=== PATIENT | female | born 2000 | race African-American/Black ===

== ENCOUNTER 2020-09-22 03:50 | Inpatient (IN) ==
[2020-09-22] MEDS ORDERED: ONDANSETRON 4 MG/2 ML VIAL IV PRN (03:59)
[2020-09-22] MEDS ORDERED: LACTATED RINGERS 1,000 ML IV SCH (05:00)
[2020-09-22 05:10] LABS: Basophils # 0.1 10*3/uL (0.0-0.2); Basophils % 0.4 % (0.0-0.8); Eosinophils # 0.1 10*3/uL (0.0-0.87); Eosinophils % 0.6 % (0.00-10.9); Hematocrit 28.8 VOL% (35.7-47.0); Hemoglobin 9.2 GM/DL (12.0-16.0); Immature Granulocytes % 0.8 %; Lymphocytes # 2.3 10*3/uL (1.4-4.0); Lymphocytes % 17.5 % (21.3-54.2); Mean Corpuscular HGB Conc 31.9 GM/DL (32-36); Mean Corpuscular Volume 79.1 FL (87-102); Mean Platelet Volume 11.2 FL (9.6-12.0); Monocytes % 9.3 % (1.7-12.7); NRBC # 0.02 10*3/uL; Neutrophils % 71.4 % (38.7-73.9); Platelet Count 366 T/CUMM (130-400); Red Blood Count 3.64 MC/CUMM (3.8-5.5); Red Cell Distribution Width 15.7 % (9.3-17.3)
[2020-09-22 05:21] LABS: Bacteria,Urine Occasional /HPF (Few); Bilirubin,Urine Negative (Negative); Blood, Urine Negative (Negative); Glucose,Urine (UA) Negative (Negative); Hyaline Casts,Urine 1 /LPF (0-3); Ketones,Urine Negative (Negative); Nitrite,Urine Negative (Negative); Protein,Urine Negative; RBC,Urine 1 /HPF (0-4); Squamous Epithelial Cell,Urine Occasional /HPF (0-10); Urine Appearance CLEAR (Clear); Urine Color Straw (Yellow); Urine Specific Gravity 1.004 (1.001-1.035); Urine Urobilinogen < 2.0 EU/DL (0.2-1.0); WBC,Urine 2 /HPF (0-6)
[2020-09-22 05:31] LABS: Albumin 2.6 G/DL (3.4-5.0); Bilirubin,Total 0.4 MG/DL (0.2-1.0); Calcium 8.7 MG/DL (8.5-10.1); Osmolality,Calculated 273.5 MOS/KG (273-304); Total Protein 7.2 G/DL (6.4-8.3)
[2020-09-22] MEDS ORDERED: OXYTOCIN/LR 20 UNIT/1,000 ML BAG IV SCH (06:00)
[2020-09-22] MEDS ORDERED: diphenhydrAMINE 50 MG/1 ML VIAL IV PRN ×2 (08:52)
[2020-09-22] MEDS ORDERED: FAMOTIDINE 20 MG/2 ML VIAL IV ONE (08:52)
[2020-09-22] MEDS ORDERED: ePHEDrine 50 MG/ML VIAL IV PRN (08:52)
[2020-09-22] MEDS ORDERED: CITRIC ACID/SODIUM CITRATE 30 ML UDCUP PO ONE (08:52)
[2020-09-22] MEDS ORDERED: LACTATED RINGERS 1,000 ML IV ONE (08:52)
[2020-09-22] MEDS ORDERED: NALOXONE 0.4 MG/ML VIAL IV PRN (08:52)
[2020-09-22] MEDS ORDERED: fentaNYL 2 MCG/ROPIV 0.2% EPID 100 ML EPIDURAL SCH (09:00)
[2020-09-22 12:31] LABS: Bilirubin,Urine Negative (Negative); Blood, Urine Negative (Negative); Glucose,Urine (UA) Negative (Negative); Ketones,Urine 5 mg/dL (Negative); Nitrite,Urine Negative (Negative); Protein,Urine Negative; Squamous Epithelial Cell,Urine Occasional /HPF (0-10); Urine Appearance CLEAR (Clear); Urine Color Straw (Yellow); Urine Specific Gravity 1.005 (1.001-1.035); Urine Urobilinogen < 2.0 EU/DL (0.2-1.0)
[2020-09-22] MEDS ORDERED: TRANEXAMIC ACID 1,000 MG/10 ML VIAL ONE (12:45)
[2020-09-22] MEDS ORDERED: miSOPROStoL 200 MCG TABLET ONE (12:45)
[2020-09-22] MEDS ORDERED: METHYLERGONOVINE 0.2 MG/1 ML AMP ONE (12:46)
[2020-09-22] MEDS ORDERED: SODIUM CHLORIDE 0.9% 0 ML IV ONE (12:46)
[2020-09-22] MEDS ORDERED: CARBOPROST TROMETHAMINE 250 MCG/ML AMP IM ONE (12:46)
[2020-09-22] MEDS ORDERED: LIDOCAINE 1% 50 ML VIAL ONE (14:54)
[2020-09-22 15:01] LABS: Cord Venous Blood HCO3 20.1 MMOL/L; Cord Venous Blood PO2 20.4
[2020-09-22] MEDS ORDERED: RHO(D) IMMUNE GLOBULIN 300 MCG SYRINGE IM ONE (18:05)
[2020-09-22] MEDS ORDERED: BENZOCAINE 20%/MENTHOL 0.5% SPRAY 56 GM CAN TOP PRN (18:05)
[2020-09-22] MEDS ORDERED: oxyCODONE/ACETAMINOPHEN 5-325 MG TABLET PO PRN ×2 (18:05)
[2020-09-22] MEDS ORDERED: IBUPROFEN 800 MG TABLET PO PRN (18:05)
[2020-09-22] MEDS ORDERED: WITCH HAZEL PADS 100/JAR TOP PRN (18:05)
[2020-09-22] MEDS ORDERED: BISACODYL 10 MG SUPP RECTAL PRN (18:05)
[2020-09-22] MEDS ORDERED: OXYTOCIN/LR 20 UNIT/1,000 ML BAG IV ONE ×2 (18:05→18:09)
[2020-09-22] MEDS ORDERED: DIPH/TET/ACEL PERT BOOSTER VACCINE 0.5 ML VIAL IM ONE (18:05)
[2020-09-22] MEDS ORDERED: LANOLIN 50% CREAM 0.3 OZ TUBE TOP PRN (18:05)
[2020-09-22] MEDS ORDERED: ACETAMINOPHEN 325 MG TABLET PO PRN (18:05)
[2020-09-22] MEDS ORDERED: MEASLES/MUMPS/RUBELLA VACCINE 0.5 ML VIAL SUBCUT ONE (18:05)
[2020-09-22] MEDS ORDERED: HYDROCORTISONE 2.5% RECTAL CREAM 30 GM TUBE TOP PRN (18:05)
[2020-09-22] MEDS ORDERED: oxyCODONE/ACETAMINOPHEN 5-325 MG TABLET ONE (18:13)
[2020-09-22] MEDS: DOCUSATE SODIUM 100 MG CAPSULE PO SCH (21:34)
[2020-09-23 04:27] LABS: Basophils # 0.1 10*3/uL (0.0-0.2); Basophils % 0.3 % (0.0-0.8); Eosinophils # 0.1 10*3/uL (0.0-0.87); Eosinophils % 0.3 % (0.00-10.9); Hematocrit 24.7 VOL% (35.7-47.0); Hemoglobin 7.9 GM/DL (12.0-16.0); Immature Granulocytes % 0.8 %; Immature Granulocytes Absolute 0.14 #; Lymphocytes # 2.1 10*3/uL (1.4-4.0); Lymphocytes % 11.7 % (21.3-54.2); Mean Corpuscular Volume 78.7 FL (87-102); Mean Platelet Volume 10.4 FL (9.6-12.0); Monocytes % 9.9 % (1.7-12.7); Platelet Count 258 T/CUMM (130-400); Red Blood Count 3.14 MC/CUMM (3.8-5.5); Red Cell Distribution Width 15.4 % (9.3-17.3); White Blood Count 18.1 T/CUMM (4-12)
[2020-09-23] MEDS: DOCUSATE SODIUM 100 MG CAPSULE PO SCH ×2 (08:29→21:12)
[2020-09-23] MEDS ORDERED: FERROUS SULFATE 325 MG TABLET PO SCH (09:00)
[2020-09-23] MEDS ORDERED: SODIUM CHLORIDE 0.9% 1,000 ML IV PRN (09:39)
[2020-09-23 21:00] LABS: Hematocrit 29.3 VOL% (35.7-47.0); Hemoglobin 9.7 GM/DL (12.0-16.0)
[2020-09-23] MEDS: FERROUS SULFATE 325 MG TABLET PO SCH (21:12)
[2020-09-24 07:15] VITALS: BP 127/84
[2020-09-24] MEDS: FERROUS SULFATE 325 MG TABLET PO SCH (10:16)
[2020-09-24] MEDS: DOCUSATE SODIUM 100 MG CAPSULE PO SCH (10:16)
== END 2020-09-24 12:08 | disposition home or self-care (01) | DRG 560 ==
LOC: N.LDOUT 03:50 → N.LD 03:53 → N.OB 17:20
PROVIDERS: ADMIT Obstetrics & Gynecology; ATTEND Obstetrics & Gynecology

== ENCOUNTER 2022-07-27 13:57 | Inpatient (IN) ==
[2022-07-27] MEDS: LACTATED RINGERS 1,000 ML IV SCH ×2 (14:27→17:26)
[2022-07-27] MEDS ORDERED: OXYTOCIN/LR 20 UNIT/1,000 ML BAG IV ONE ×3 (14:35→21:38)
[2022-07-27] MEDS ORDERED: ONDANSETRON 4 MG/2 ML VIAL IV PRN (14:35)
[2022-07-27] MEDS ORDERED: CARBOPROST TROMETHAMINE 250 MCG/ML AMP IM PRN (14:35)
[2022-07-27] MEDS ORDERED: miSOPROStoL 200 MCG TABLET RECTAL PRN (14:35)
[2022-07-27] MEDS ORDERED: TRANEXAMIC ACID 1,000 MG in SODIUM CHLORIDE 0.9% 100 ML IV PRN (14:35)
[2022-07-27] MEDS ORDERED: METHYLERGONOVINE 0.2 MG/1 ML AMP IM PRN (14:35)
[2022-07-27] MEDS ORDERED: CITRIC ACID/SODIUM CITRATE 30 ML UDCUP PO ONE (14:41)
[2022-07-27] MEDS ORDERED: ePHEDrine 50 MG/ML VIAL IV PRN (14:41)
[2022-07-27] MEDS ORDERED: NALOXONE 0.4 MG/ML VIAL IV PRN (14:41)
[2022-07-27] MEDS ORDERED: FAMOTIDINE 20 MG/2 ML VIAL IV ONE (14:41)
[2022-07-27 14:55] LABS: Basophils % 0.3 % (0.0-0.8); Eosinophils % 0.3 % (0.00-10.9); Hematocrit 31.3 VOL% (35.7-47.0); Hemoglobin 9.8 GM/DL (12.0-16.0); Immature Granulocytes % 0.7 %; Immature Granulocytes Absolute 0.07 #; Lymphocytes # 1.8 10*3/uL (1.4-4.0); Lymphocytes % 18.5 % (21.3-54.2); Mean Corpuscular HGB Conc 31.3 GM/DL (32-36); Mean Platelet Volume 11.4 FL (9.6-12.0); Monocytes # 0.7 10*3/uL (0.11-0.8); Monocytes % 6.6 % (1.7-12.7); Neutrophils % 73.6 % (38.7-73.9); Platelet Count 334 T/CUMM (130-400); Red Blood Count 3.96 MC/CUMM (3.8-5.5); Red Cell Distribution Width 15.4 % (9.3-17.3); White Blood Count 9.8 T/CUMM (4-12)
[2022-07-27] MEDS ORDERED: fentaNYL 2 MCG/ROPIV 0.2% EPID 100 ML EPIDURAL SCH (15:00)
[2022-07-27] MEDS ORDERED: OXYTOCIN/LR 20 UNIT/1,000 ML BAG IV SCH (15:00)
[2022-07-27] MEDS ORDERED: AMPICILLIN INJ 2,000 MG in SODIUM CHLORIDE 0.9% 100 ML IV ONE (15:15)
[2022-07-27] MEDS ORDERED: CLINDAMYCIN INJ 900 MG/50 ML PREMIX IV SCH (15:30)
[2022-07-27 16:31] LABS: Glucose,Urine (UA) Negative (Negative); Nitrite,Urine Negative (Negative); Protein,Urine Negative (Negative); Urine Appearance Clear (Clear); Urine Color Yellow (Yellow); Urine Specific Gravity 1.015 (1.001-1.035)
[2022-07-27 16:32] LABS: Bilirubin,Urine Negative (Negative); Blood, Urine Negative (Negative); Ketones,Urine 15 mg/dL (Negative)
[2022-07-27 16:33] LABS: Mucus,Urine Occasional /LPF (Occasional); RBC,Urine 1 /HPF (0-4); Squamous Epithelial Cell,Urine Occasional /HPF (0-10)
[2022-07-27] MEDS ORDERED: SODIUM CHLORIDE 0.9% 0 ML IV ONE (17:28)
[2022-07-27 17:52] LABS: Cord Arterial Blood HCO3 21.1 MMOL/L
[2022-07-27 17:55] LABS: Cord Venous Blood HCO3 23.1 MMOL/L; Cord Venous Blood PCO2 37.8 MMHG; Cord Venous Blood PO2 28.9
[2022-07-27] MEDS ORDERED: AMPICILLIN INJ 1,000 MG in SODIUM CHLORIDE 0.9% 100 ML IV SCH (20:00)
[2022-07-27] MEDS ORDERED: oxyCODONE/ACETAMINOPHEN 5-325 MG TABLET PO PRN (21:38)
[2022-07-27] MEDS ORDERED: BENZOCAINE 20%/MENTHOL 0.5% SPRAY 56 GM CAN TOP PRN (21:38)
[2022-07-27] MEDS ORDERED: ACETAMINOPHEN 325 MG TABLET PO PRN (21:38)
[2022-07-27] MEDS ORDERED: HYDROCORTISONE 2.5% RECTAL CREAM 30 GM TUBE TOP PRN (21:38)
[2022-07-27] MEDS ORDERED: LANOLIN 50% CREAM 0.3 OZ TUBE TOP PRN (21:38)
[2022-07-27] MEDS ORDERED: WITCH HAZEL PADS 100/JAR TOP PRN (21:38)
[2022-07-27] MEDS ORDERED: BISACODYL 10 MG SUPP RECTAL PRN (21:38)
[2022-07-27] MEDS ORDERED: DIPH/TET/ACEL PERT BOOSTER VACCINE 0.5 ML VIAL IM ONE (22:00)
[2022-07-27] MEDS ORDERED: RHO(D) IMMUNE GLOBULIN 300 MCG SYRINGE IM ONE (22:00)
[2022-07-27] MEDS ORDERED: MEASLES/MUMPS/RUBELLA VACCINE 0.5 ML VIAL SUBCUT ONE (22:00)
[2022-07-28] MEDS: oxyCODONE/ACETAMINOPHEN 5-325 MG TABLET PO PRN ×2 (02:29→12:33)
[2022-07-28] MEDS: IBUPROFEN 800 MG TABLET PO PRN ×3 (02:30→20:19)
[2022-07-28 05:28] LABS: Basophils # 0.1 10*3/uL (0.0-0.2); Basophils % 0.4 % (0.0-0.8); Eosinophils # 0.1 10*3/uL (0.0-0.87); Eosinophils % 0.4 % (0.00-10.9); Hematocrit 32.9 VOL% (35.7-47.0); Hemoglobin 10.1 GM/DL (12.0-16.0); Immature Granulocytes % 0.6 %; Immature Granulocytes Absolute 0.09 #; Lymphocytes # 2.4 10*3/uL (1.4-4.0); Lymphocytes % 15.7 % (21.3-54.2); Mean Corpuscular HGB Conc 30.7 GM/DL (32-36); Mean Corpuscular Volume 78.7 FL (87-102); Mean Platelet Volume 11.1 FL (9.6-12.0); Monocytes # 1.3 10*3/uL (0.11-0.8); Monocytes % 8.4 % (1.7-12.7); Neutrophils % 74.5 % (38.7-73.9); Platelet Count 322 T/CUMM (130-400); Red Blood Count 4.18 MC/CUMM (3.8-5.5); Red Cell Distribution Width 15.3 % (9.3-17.3); White Blood Count 15.1 T/CUMM (4-12)
[2022-07-28] MEDS ORDERED: MAGNESIUM HYDROXIDE SUSP 30 ML UDCUP PO PRN (08:15)
[2022-07-28] MEDS: DOCUSATE SODIUM 100 MG CAPSULE PO SCH ×3 (09:07→20:19)
[2022-07-28] MEDS ORDERED: POTASSIUM CHLORIDE 20 MEQ TABLET PO PRN (19:17)
[2022-07-29] MEDS: DOCUSATE SODIUM 100 MG CAPSULE PO SCH (09:44)
[2022-07-29 11:19] VITALS: BP 109/57
== END 2022-07-29 12:15 | disposition home or self-care (01) | DRG 560 ==
LOC: N.LD 13:57 → N.OB 21:20
PROVIDERS: ADMIT Obstetrics & Gynecology; ATTEND Obstetrics & Gynecology